=== PATIENT | male | born 1980 | race African-American/Black ===

== ENCOUNTER 2024-05-04 15:20 | Emergency (ER) | payer OTHER ==
[2024-05-04] MEDS ORDERED: ONDANSETRON 4 MG (ODT) TAB ONE (15:36)
--- NOTE | 2024-05-04 16:08 | RAD REPORT ---
EXAMINATION: CT HEAD WITHOUT CONTRAST CT CERVICAL SPINE WITHOUT CONTRAST CLINICAL INDICATION: Male, 44 years old. TRAUMA TECHNIQUE: Axial CT images from the skull base to the vertex without intravenous contrast. Axial CT i mages through the cervical spine were obtained without intravenous contrast. Sagittal and coronal reformatted images were created from the data set. Coronal and sagittal reformatted images were creat ed from the data set. One or more of the following dose reduction techniques were used: Automated exposure control, adjustment of the mA and/or kV according to patient size, and/or iterative reconstr uction. Unless otherwise specified, incidental findings do not require dedicated imaging follow-up. [id number]. COMPARISON: No prior exam. FINDINGS: Head: INTRACRANIAL: No acute intracranial hemorrhage. No hydrocephalus. No mass effect or midline shift. No significant white matter disease VASCULATURE: No visualized abnormalities in the arteries or dural venous sinuses. SCALP/SKULL: No significant soft tissue or osseous abnormalities. SINUSES: The visualized paranasal sinuses and mastoid air cells are predominantly clear. Cervical spine: ALIGNMENT: The cervical spine has normal alignment without scoliosis or spondylolisthesis. BONE: Vertebral body heights are maintained. No aggressive osseous lesions. DEGENERATIVE CHANGES: None significant. SOFT TISSUE: No significant abnormalities in the soft tissue of the neck. The visualized lung apices are clear. IMPRESSION: No acute intracranial abnormality. No acute fracture or traumatic malalignment of the cervical spine.
--- NOTE | 2024-05-04 18:27 | EDPHYS ---
Physician Documentation [facility] Name: Jorge Ulloa Jr Age: 44 yrs Sex: Male : 1980 Arrival Date: 05/04/2024 Time: 15:20 Bed 12 Private MD: ED Physician Elias Ozuna HPI: 05/04 15:26 This 44 yrs old Black Male presents to ER via Unassigned with complaints of head injury.kb 15:26 Pt is a 44 year old male who presents for dizziness, headache, nausea and vomiting that kb has been ongoing since head to hit with cell door 3 days ago. Denies loc. . ROS: 15:26 Constitutional: As per HPI kb Exam: 15:26 Constitutional: This is a well developed, well nourished patient who is awake, alert, kb and in no acute distress. Eyes: Pupils equal round and reactive to light, extra-ocular motions intact. Lids and lashes normal. Conjunctiva and sclera are non-icteric and not injected. Cornea within normal limits. Periorbital areas with no swelling, redness, or edema. ENT: Moist Mucous membranes Cardiovascular: Regular rate Respiratory: Respirations even and unlabored. No increased work of breathing. Talking in full sentences Abdomen/GI: Soft, non-tender. No distention Skin: Warm, dry with normal turgor. Normal color. MS/ Extremity: Pulses equal, no cyanosis. Neurovascular intact. Full, normal range of motion. Neuro: Awake and alert, GCS 15, oriented to person, place, time, and situation. 15:26 Head/face: Noted is no obvious of injury or deformity except wound with steristrips in place to right eyebrow. [place] Coma Score: 18:18 Eye Response: spontaneous(4). Motor Response: obeys commands(6). Verbal Response: kb oriented(5). Total: 15. MDM: 15:21 Medical Screening Exam initiated kb 18:18 Data reviewed: vital signs, nurses notes. kb 18:18 Differential diagnosis: Contusion of Hematoma on Intracranial bleed- subdural. kb Counseling: I had a detailed discussion with the patient and/or guardian regarding the historical points, exam findings, and any diagnostic results supporting the discharge/admit diagnosis, radiology results, the need for outpatient follow up, a family practitioner, to return to the emergency department if symptoms worsen or persist or if there are any questions or concerns that arise at home. 05/04 15:22 Order name: CT Head C Spine kb Administered Medications: 19:46 Drug: Ondansetron IVP 4 mg IVP once; over 2 minutes {Note: given PO.} Route: IVP; Site: Other; 05/05 08:10 Follow up: Response: No adverse reaction Disposition: 15:04 Co-signature as Attending Physician, Elias Ozuna MD I reviewed the patient's care rn provided by the Advanced Practice Provider and agree with the diagnosis and treatment plan. Disposition Summary: 05/04/24 18:20 Discharge Ordered Notes: Location: Home kb Condition: Stable kb Diagnosis - Unspecified injury of head, initial encounter kb Followup: kb - With: Emergency Department - When: As needed - Reason: Worsening of condition Followup: kb - With: Private Physician - When: 2 - 3 days - Reason: Recheck today's complaints, Continuance of care, Re-evaluation by your physician Discharge Instructions: - Discharge Summary Sheet kb - Concussion, Adult, [id number] kb - Head Injury, Adult, [id number] kb Forms: - Medication Reconciliation Form kb - Antibiotic Education kb - Prescription Opioid Use kb - Patient Portal Instructions kb - Leadership Thank You Letter kb Signatures: Dispatcher [employer] Smiley Vela, RM-Azul QUINTANILLAP-Barbi Mims, RN RN Elias Georges MD MD paralegal internship: (The following items were deleted from the chart) 05/04 15:22 15:22 Head C Spine MPR Wo [id number] ordered. EDDC RONALDO
--- NOTE | 2024-05-04 18:27 | ER ---
Nurse's Notes [facility] Name: Jorge Ulloa Jr Age: 44 yrs Sex: Male : 1980 Arrival Date: 05/04/2024 Time: 15:20 Bed 12 Private MD: Diagnosis: Unspecified injury of head, initial encounter Presentation: 05/04 15:43 Acuity: NIRAV 4 iw [place] Coma Score: 18:18 Eye Response: spontaneous(4). Motor Response: obeys commands(6). Verbal Response: kb oriented(5). Total: 15. ED Course: 15:21 Patient arrived in ED. kb 15:21 Smiley Connell FNP-C is PHCP. kb 15:21 Elias Ozuna MD is Attending Physician. kb 15:43 Barbi Murray, RN is Primary Nurse. iw 15:43 Triage completed. iw 15:50 CT Head C Spine In Process Unspecified. EDMS Administered Medications: 19:46 Drug: Ondansetron IVP 4 mg IVP once; over 2 minutes {Note: given PO.} Route: IVP; Site: Other; 05/05 08:10 Follow up: Response: No adverse reaction iw Outcome: 05/04 18:20 Discharge ordered by . kb 18:27 Patient left the ED. iw Signatures: Dispatcher [employer] EDMS Smiley Connell FNP-C FNP-Ckb Williams, Irene, RN RN iw
== END 2024-05-04 18:27 | disposition home or self-care (01) ==
LOC: ER 15:20
DX: S09.90XA Unspecified injury of head, initial encounter (principal); R11.2 Nausea with vomiting, unspecified; W22.8XXA Striking against or struck by other objects, initial encounter
CPT/HCPCS: 70450; 72125; Q0162